=== PATIENT | male | born 1980 | race Caucasian/White ===

== ENCOUNTER 2018-05-17 05:18 | Day surgery (SDC) | payer OTHER ==
--- NOTE | 2018-05-16 20:19 | PDGENHP ---
History and Physical - Chief Complaint Hip Pain - History of Present Illness 1. Bilateral~Femoroacetabular impingement (DAYLIN) Cam type, labral tears 2. Left~Hip Dyplasia 3. ~~Clinical suspicion of Bilateral Femoral Retrotorsion HISTORY OF PRESENT ILLNESS: Jusis a 38 y.o.~very~~active male~who I have had the pleasure to consult on today. 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 Jusdoes not have~ a known history of hip dysplasia. Presentation today is of~posterior, lateral~bilateral~hip pain both superficial and deep. ~The hip~does~wake him~at night and does~click and catch on him. 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 Jushas~utilized medication for pain management, including NSAID.~Jushas used medication intermittently on days he plays golf x15 years. Jusunderstands that he~has a hip and pelvis problem which should be researched and wishes to get a better understanding of his~hip status, followed by an establishment of a treatment strategy, hoping christopherwould be able to get back to his~well being active life. History: Past medical history:~~ Had a recent negative workup with rheumatology recently~for ankylosing spondylitis Relevant familial history:~Possible rheumatology diagnoses Past surgical history:~ No. Surgery Anesthesia Year Outcome 1 Sinus surgery General 2011 No complications Jusdenies problematic issues with general anesthesia in the past. I have reviewed, verified and agree with the past medical, surgical, family and social history. Current Medications:~currently has no medications in their medication list. ALLERGIES:~has no allergies on file. Objective: Physical Examination: Jusis 6~feet 1~inches tall and weighs 160~Lbs. Jusis AAO x3; brett~is well- nourished, in NAD. Skin is warm and dry. ~Breathing is non-labored. ~CV with RRR by pulse. Abdomen is soft, NTND. Currently,~brett~walks with a normal~gait. Trendelenburg sign is~negative~and proprioception is reduced,~both~sides. He~presents with moderate~signs of joint laxity. Beightons Score:~4~(R~knee, elbows, R pinky) He~is fit looking. ~~ Lower spine examination is~negative~for sciatic or femoral nerve irritation with negative~SLR &~femoral stretch tests. Range of motion of the spine is normal~for flexion, extension, and rotations, with~minimal~associated pain. Strength, Sensation and pulses are~normal -~bilaterally Ankles and knees exams are~normal~and no~mal-alignment is evident. He~has no leg length discrepancy. Thigh circumference is~symmetric~with no evidence for muscle atrophy~on both~ sides. Hip ROM (degrees): FL ER At 90~hip FL IR At 90~hip FL AB AD EX IR Neutral hip ER Neutral hip R 115 50 20-25 40 5 5 30 55 L 110 50 20 45 5 5 30 55 Specific hip and pelvis tests: Impingement Test LAURY Roll Add. Longus R ++(anterior) +++ Negative ++ L ++(anterior) +++ Negative ++ Glut. Med ITB Posterior Imp R +++ 5/5 strength Negative 5/5 strength Negative L +++ 5/5 strength +++ 5/5 strength Negative Squeeze test measured~normal Bony Symphysis pubis is~painful~to touch (+)~while concentric activity of the rectus abdominis,~does not~produce pain at its insertion. Ilio Psos specific tests are~negative for pain during cycling for~both hips~and remarkable for no snap HF has~no pain~both hips. Lateral~capsule tenderness bilaterally Greater trochanteric burse is~pain free~on both hips. Piriformis tests: FAIR is~negative,~with no~local signs of neuritis related to sciatic nerve. SIJs examination is~normal~with normal~LAURY in relation and local tenderness. Hamstrings tests are~negative~tendinopathy both hips. On a daily basis, the following percentages reflectDeisy's overall total pain: Deep hip:~60% Lateral:~40% Imaging: Radiology studies which I have personally reviewed, analyzed and measured are below: XR: AP of the hip and pelvis: Performed in a~good~technique Coccyx to pubic symphysis distance~1.4~cm. 10~degrees caudal [place] Lines are~preserved. Minimal~Pathological signs are seen in the Symphysis Pubis. Minimal~Pathological signs are seen at the Ischial tuberosity. ~ Specific measurements show:~ 0 deg(10 deg corrected) NSA~ LCE Sourcil~Angle Sharp's angle Lat. Cam Lat. Pincer C.Over~sign Head~Coverage % ATDmm R 127 27 6 36(41) Neg Neg Neg 75% 28.0 L 128 19 (17) 114 (12) 41(43) Neg Neg Neg 74% 33.8 Pos. wall sign ISS NAD ~~Dysplasia Comments R Negative Negative 20.5~mm Negative Punctate labral ossification L Negative Negative 16.7~mm + Punctate labral ossification Sclerosis Sup. Lat. OA Cysts Joint Space-WBZ Joint Space-Medial R Negative Negative Negative 4.3~mm 3.9~mm L Negative Negative Negative 3.9~mm 3.5~mm X Table lateral: Anterior cam lesion is~seen~on both hips. Alpha Angle: ~ Right~60~degrees Left~63~degrees MRI shows:~04/01/18 - Wide field of view pelvis, no unilateral coronal or axial view, no apparent acetabular cysts or edema, good cartilage quality seen best on sagittal views Impression and plan:Zain Luuis a 38 y.o.~active male~suffering from symptomatic Bilateral~ Femoroacetabular impingement (DAYLIN) Cam type~(L>R),~Borderline Hip Dyplasia~and~ Clinical Suspicion of Bilateral Femoral Retrotorsion~causing significant disability to~him~and altering his~sport and life activities. Physical examination, imaging, and~his~story correspond with the diagnosis mentioned above. I explained that hip dysplasia is a condition wherein the hip joint has excessive play~and instability due to a variety of factors, including the depth and adequacy of the socket, the orientation of the femur bone, and ligament laxity around the hip joint. Dysplasia ranges in severity from borderline to beena, with treatment options being specific to the specific nature of the problem. Left untreated, the instability in the hip joint can cause progressive tearing of the labrum and deterioration of the surface cartilage, ultimately resulting in progressive osteoarthritis of the hip. I explained that femoroacetabular impingement (DAYLIN - Cam type) arises due to a bony or soft tissue conflict between the femur (ball) and acetabulum (socket) caused by an abnormality in the shape of the femoral head and neck. Over time, repetitive impingement can result in damage to the labrum and adjacent surface cartilage within the socket, ultimately giving rise to progressive osteoarthritis of the hip. I explained that although a labral tear can be a source of pain, it is rarely the root of the problem and typically occurs secondary to an underlying abnormality in the shape and mechanics of the hip joint. I reviewed conservative treatment options for Dysplasia and DAYLIN including activity modification to avoid positions of impingement or instability, physical therapy, non-steroidal anti-inflammatory medications, and various injections (corticosteroid and PRP) aimed at reducing inflammation in the hip joint or/and preventing dynamic instability and impingement. PRP injections may promote healing and reduce symptoms in certain cases but it will not repair chronically damaged tissue. Although these measures may help to buy time~and reduce current level of symptoms, they are not a definitive solution to the problem given the underlying abnormality in the shape of the hip joint. Patients who have failed conservative management and continue to experience symptoms are candidates for definitive surgical treatment, which may consist of hip arthroscopy alone or in combination with more invasive bony realignment procedures of the hip socket and/or femur called periacetabular osteotomy (RAUL) or derotational femoral osteotomy (DFO). Hip arthroscopy typically includes treating the labrum with either repair or reconstruction of the torn labrum; as well as addressing the underlying abnormalities by restoring the normal shape to the hip joint. If the cartilage is damaged a Microfracture surgical procedure may also be necessary to help stimulate the growth of fibrocartilage. If a patient requires a labral reconstruction or a Microfracture, the initial rehabilitation from the surgery may take longer, but the superintendent marine oil terminal results are typically favorable. I reviewed the technical aspects of hip arthroscopy including risks, benefits, and expected course of recovery. Hal understands that hip arthroscopy is a minimally invasive outpatient procedure carried out through small incisions on the outer aspect of the hip joint. During surgery, the labral tear will be identified and either repaired or reconstructed using bone anchors and suture material. Additionally, any excessive bone will be removed with a high-speed sanket to reshape the hip joint and restore normal anatomy. Risks include infection, bleeding, injury to nearby nerves or vessels, stiffness, persistent pain, instability, venous thromboembolic disease, and traction related complications including temporary foot numbness. Rarely, revision surgery may be required to address these problems. Overall recovery takes approximately 4 8 months depending on the extent of damage and degree of repair. In the event that the labral tissue quality is inadequate for successful repair and healing, Hal understands that a labral reconstruction will be performed. This procedure entails placing a cadaver tissue graft within the hip joint and stabilizing it with bone anchors to build a new labrum. The overall recovery time for labral reconstruction is similar to that of labral repair, although the surgical procedure takes longer to perform. Juswill review the info presented. In order to better evaluate the soft tissues and cartilage of the hip joint, I will order an MRI scan~- L hip. In order to obtain more detailed information regarding the alignment, orientation, and shape of the bony hip and pelvis I will order a CT scan to be performed. The results of the CT scan, including femoral torsion and acetabular version measured values and 3D images, will aid me in deciding on the best treatment strategy and surgical pre-planning. We will also refer Hal to PT today. Jusis going to contact us after completing his~imaging studies. Jusis happy with this plan. I have also supplied~vinay~with handouts, outlining the expected surgical treatment and rehab involved. I wish~Jusall the best, ~~ Aide Fisher MD History Information - Allergies/Home Medication List Allergies/Adverse Reactions: No Known Allergies Allergy (Verified 05/14/18 12:39) Home Medications: Ludin Mag Zinc-D Tablet 05/14/18 [Last Taken 05/14/18] I have personally reviewed and updated: family history, medical history - Social History Smoking Status: Never smoked Review of Systems Review of Systems: Physical Exam Physical Exam:
[2018-05-17] MEDS ORDERED: PREGABALIN 150 MG CAP PO ONE (05:53)
[2018-05-17] MEDS ORDERED: ceFAZolin 2 GM/DEXTROSE 100 ML IV ONE (05:53)
[2018-05-17] MEDS ORDERED: ACETAMINOPHEN 500 MG TAB PO ONE (05:53)
[2018-05-17] MEDS ORDERED: LR 1,000 ML IV ONE (05:55)
[2018-05-17] MEDS ORDERED: MIDAZOLAM 2 MG/2 ML VIAL IVP ONE (06:59)
--- NOTE | 2018-05-17 07:01 | PDANEPAE ---
ANE History of Present Illness 38 y/o male here for left hip arthroscopy femoroplasty ANE Past Medical History - Cardiovascular History Hx Hypertension: No Hx Arrhythmias: No Hx Chest Pain: No Hx Coronary Artery / Peripheral Vascular Disease: No Hx CHF / Valvular Disease: No Hx Palpitations: No - Pulmonary History Hx COPD: No Hx Asthma/Reactive Airway Disease: No Hx Recent Upper Respiratory Infection: No Hx Oxygen in Use at Home: No Hx Sleep Apnea: No Sleep Apnea Screening Result - Last Documented: Negative - Neurologic History Hx Cerebrovascular Accident: No Hx Seizures: No Hx Dementia: No - Endocrine History Hx Diabetes: No - Renal History Hx Renal Disorders: No - Liver History Hx Hepatic Disorders: No - Neurological & Psychiatric Hx Hx Neurological and Psychiatric Disorders: No - Cancer History Hx Cancer: No - Congenital Disorder History Hx Congenital Disorders: No - GI History Hx Gastrointestinal Disorders: No - Other Health History Other Health History: eczema type rash on face - Chronic Pain History Chronic Pain: Yes (left hip) - Surgical History Prior Surgeries: sinus surgery. wisdom teeth extracted ANE Review of Systems Review of Systems: - Exercise capacity Exercise capacity: >=4 METS METS (RN): 4 METS ANE Patient History - Allergies Allergies/Adverse Reactions: No Known Allergies Allergy (Verified 05/14/18 12:39) - Home Medications Home medications: home medication list seen and reviewed Home Medications: Ludin Mag Zinc-D Tablet 05/14/18 [Last Taken 05/14/18] - NPO status NPO Status: no food or drink >8 hours NPO Since - Liquids (Date): 05/17/18 NPO Since - Liquids (Time): 04:00 NPO Since - Solids (Date): 05/16/18 NPO Since - Solids (Time): 21:00 - Anes Hx Anes Hx: no prior problems - Smoking Hx Smoking Status: Never smoked - Family Anes Hx Family Hx Anesthesia Complications: none ANE Labs/Vital Signs - Vital Signs Blood Pressure: 123/76 Heart Rate: 50 Respiratory Rate: 16 O2 Sat (%): 99 Height: 185.42 cm Weight: 74.843 kg ANE Physical Exam - Airway Mallampati Score: Class 1 Mouth exam: normal dental/mouth exam - Pulmonary Pulmonary: clear to auscultation - Cardiovascular Cardiovascular: regular rate and rhythym
[2018-05-17] MEDS ORDERED: MIDAZOLAM 2 MG/2 ML VIAL ONE (07:04)
[2018-05-17] MEDS ORDERED: PROPOFOL 200 MG/20 ML VIAL ONE ×2 (07:07→09:25)
[2018-05-17] MEDS ORDERED: fentaNYL 100 MCG/2 ML INJ ONE ×2 (07:07→11:22)
[2018-05-17] MEDS ORDERED: LIDOCAINE 2% 100 MG/5 ML SYR ONE (07:10)
[2018-05-17] MEDS ORDERED: ROCURONIUM 50 MG/5 ML VIAL ONE ×2 (07:10→08:40)
[2018-05-17] MEDS ORDERED: BUPIVACAINE 0.25% 30 ML SDV ONE (07:26)
[2018-05-17] MEDS ORDERED: EPINEPHrine 30 MG/30 ML MDV (0.1 MG/0.1 ML) ONE (07:26)
[2018-05-17] MEDS ORDERED: HYDROmorphONE/DILAUDID 2 MG/ML INJ ONE (08:04)
[2018-05-17] MEDS ORDERED: PROPOFOL/EMULSION 500 MG/50 ML BOTTLE IV ONE (08:22)
[2018-05-17] MEDS ORDERED: LABETALOL HCL 5 MG/ML 20 ML MDV ONE (08:40)
[2018-05-17] MEDS ORDERED: hydrALAZINE 20 MG/ML VIAL ONE (08:40)
--- NOTE | 2018-05-17 09:14 | POSTANESTH ---
Post Anesthetic Evaluation Respiratory Status: Normal, Stable Level of Consciousness/Mental Status: Can Participate in Eval Pain Control: Adequate, Prn Tx Ordered Nausea/Vomiting Control: Adequate, Prn Tx Ordered Complications Possibly Related to Anesthesia: None Noted
[2018-05-17] MEDS ORDERED: ONDANSETRON 4 MG/2 ML VIAL ONE ×2 (09:20→11:47)
[2018-05-17] MEDS ORDERED: NEOSTIGMINE METHYLSULFATE 5 MG/5 ML SYR ONE (09:22)
[2018-05-17] MEDS ORDERED: GLYCOPYRROLATE 0.2 MG/1 ML VIAL ONE ×2 (09:22)
[2018-05-17] MEDS ORDERED: PROMETHAZINE HCL 25 MG/ML INJ IVP PRN (10:05)
[2018-05-17] MEDS ORDERED: METOCLOPRAMIDE 10 MG/2 ML VIAL IVP PRN (10:05)
[2018-05-17] MEDS ORDERED: fentaNYL 100 MCG/2 ML INJ IVP PRN (10:05)
[2018-05-17] MEDS ORDERED: HYDROmorphONE/DILAUDID 2 MG/ML INJ IVP PRN (10:05)
[2018-05-17] MEDS ORDERED: ONDANSETRON 4 MG/2 ML VIAL IVP PRN (10:05)
[2018-05-17] MEDS ORDERED: NALOXONE HCL 0.4 MG/ML INJ IVP PRN (10:05)
[2018-05-17] MEDS ORDERED: MEPERIDINE 25 MG/0.5 ML AMP IVP PRN (10:05)
[2018-05-17] MEDS ORDERED: ACETAMINOPHEN 500 MG TAB PO PRN (10:05)
[2018-05-17] MEDS ORDERED: oxyCODONE IR 5 MG TAB ONE ×2 (11:47→12:26)
[2018-05-17] MEDS: oxyCODONE IR 5 MG TAB PO PRN ×2 (11:48→12:26)
[2018-05-17] MEDS: LR 500 ML IV PRN ×2 (11:51→12:27)
[2018-05-17 13:17] VITALS: BP 124/74
--- NOTE | 2018-05-17 16:27 | POSTOPPROG ---
Post Op Note Date of Operation: 05/17/18 Surgeon: Greg Maloney Pulp Plant Supervisor: Dr. Weinberg Anesthesia: GET(General Endotracheal) Pre-op Diagnosis: Left DAYLIN Post-op Diagnosis: Left DAYLIN Procedure: Left Hip Arthroscopy Inf/Abcess present in the surg proc area at time of surgery?: No
== END 2018-05-17 13:18 | disposition home or self-care (01) ==
LOC: FSGY 05:18
PROVIDERS: ATTEND Orthopaedic Surgery Sports Medicine
PROC: 0QQ74ZZ Repair Left Upper Femur, Percutaneous Endoscopic Approach (ICD-10-PCS; principal; 2018-05-17 07:15)
DX: M25.852 Other specified joint disorders, left hip (principal); M25.652 Stiffness of left hip, not elsewhere classified; L30.9 Dermatitis, unspecified
CPT/HCPCS: C1713; J0171; J0360; J0690; J1170; J2001; J2250; J2405; J2704; J2710; J3010